=== PATIENT | female | born 1995 | race Caucasian/White ===

== ENCOUNTER 2020-11-27 19:36 | Emergency (ER) | payer OTHER, SELFPAY ==
[2020-11-27] VITALS (16 sets, daily range): BP systolic 113–132; BP diastolic 59–87; PULSE 82–132; RESP 18; TEMP 36.3; O2SAT 98–100
[2020-11-27 20:10] LABS: Basophils Percent Auto 0.5 % (0.2-1.2); Eosinophils Percent Auto 0.3 % (0-4.4); Hematocrit 46.3 % (37.0-47.0); Hemoglobin 15.2 g/dL (12.0-15.0); Immature Granulocyte Absolute 0.01 K/mm3 (0.00-0.031); Immature Granulocyte Percent A 0.3 % (0-0.5); Lymphocytes Absolute Auto 1.47 K/mm3 (0.9-3.2); Lymphocytes Percent Auto 38.6 % (18.3-44.2); Mean Corpuscular HGB Conc 32.8 g/dl (32-36); Mean Corpuscular Hemoglobin 30.7 pg (26-34); Mean Corpuscular Volume 93.5 fl (80-100); Mean Platelet Volume 10.2 fl (7.4-10.4); Monocytes Absolute Auto 0.5 K/mm3 (0.1-0.6); Monocytes Percent Auto 12.3 % (2.6-8.5); Neutrophils Absolute Auto 1.8 K/mm3 (1.3-6.7); Platelet Count Result 165 k/mm3 (150-375); Red Blood Count 4.95 M/mm3 (4.2-5.4); Red Cell Distribution Width 12.1 % (11.5-14.5); White Blood Count 3.8 K/mm3 (4.5-10.0)
[2020-11-27] MEDS: SODIUM CHLORIDE 0.9% IV 1,000 ML 999 ML IV CONT ×2 (20:11→20:12)
[2020-11-27] MEDS: ONDANSETRON INJ 4 MG/2 ML VIAL IV PUSH (20:11)
[2020-11-27 20:12] LABS: Add Urine Microscopic? YES; Appearance Urine Clear (Clear); Bacteria Urine 2+ /hpf; Bilirubin Urine Negative (Negative); Blood Urine Negative (Negative); Color Urine Yellow (Yellow); Glucose Urine UA Negative (Negative); Ketones Urine 2+ mg/dL (Negative); Leukocyte Esterase Ur Negative LEU/UL (Negative); Mucus Urine Moderate /lpf; Nitrate Urine Negative (Negative); Protein Urine 2+ mg/dL (Negative); Squamous Epithelial Cell Urine Many /hpf (Few); Urobilinogen Urine Negative mg/dL (<2.0); WBC Urine 0-3 /hpf
[2020-11-27 20:23] LABS: Alanine Aminotransferase 17 U/L (4-35); Albumin Level 4.4 g/dL (3.5-5.1); Alkaline Phosphatase 60 U/L (38-126); Anion Gap 11 mmol/L (8-16); Aspartate Amino Transferase 28 U/L (14-36); Bilirubin,Total 0.4 mg/dL (0.2-1.3); Blood Urea Nitrogen 18 mg/dL (7-17); Calcium 8.9 mg/dL (8.4-10.2); Carbon Dioxide 23 mmol/L (22-30); Chloride 102 mmol/L (98-107); Estimated CRCL calculation 71 ml/min; Estimated Glomerular Filt Rate > 60; Glucose 97 mg/dL (65-105); Lipase 87 U/L (23-300); Potassium 3.6 mmol/L (3.4-5.0); Sodium 136 mmol/L (137-145)
[2020-11-27] MEDS: FAMOTIDINE 20 MG/2 ML VIAL IV PUSH (21:08)
--- NOTE | 2020-11-27 22:05 | ED.GENADULT ---
HPI - General Adult General Chief complaint: Nausea/Vomiting/Diarrhea Stated complaint: COVID +, N/V Time Seen by Provider: 11/27/20 20:01 History of Present Illness HPI narrative: Patient 25-year-old female who presents the emergency department with chief complaint of nausea and vomiting. The patient reports she is diagnosed with COVID-19 and has had several days of nausea and vomiting. Patient states she is attempted to use Phenergan suppositories and Zofran ODT's but has been unable to keep anything down. The patient states that she is not really having pain just nausea. Patient reports he had a low-grade fever denies cough or shortness of breath. Related Data Home Medications Medication Instructions Recorded Confirmed norgestimate-ethinyl estradiol tablet 11/27/20 11/27/20 [Estarylla] promethazine [Promethegan] [place] 11/27/20 Allergies Allergy/AdvReac Type Severity Reaction Status Date / Time No Known Allergies Allergy Verified 11/27/20 19:44 Review of Systems Review of Systems: Narrative: A 10 system review of systems was completed on the patient and is negative except for what is stated in the HPI. Nursing and ancillary documentation was reviewed. [facility] Family History Family History Father Hypertension Grandparent Hypertension Carcinoma of colon Family history of lung cancer Family history of type 2 diabetes mellitus Other Diabetes mellitus Family history of cardiovascular disease Social History Social History Smoking status: Never smoker Alcohol intake: current Gender identity (if verbalized by the patient): Female Comments Past medical history significant for COVID-19 Exam Narrative: Exam Narrative: GENERAL: Well-appearing, well-nourished, and in no acute distress. HEAD: Normocephalic, atraumatic. EYES: PERRLA and EOMI. ENT: Nares clear, no rhinorrhea or epistaxis. Mucous membranes moist. NECK: Supple. CHEST: Clear to auscultation. No respiratory distress. HEART: Regular rate and rhythm. No murmur heard. Normal peripheral pulses. ABDOMEN: Soft, nontender, nondistended, normal active bowel sounds. EXTREMITIES: Normal range of motion. No edema. SKIN: Warm, dry, no rash. NEURO: No focal deficits. Alert and oriented x3. PSYCH: Normal mood and affect. Course Course Emergency Course: Patient was hydrated in the emergency department and received IV antiemetics. Patient is feeling much better now and is able to tolerate p.o. intake. Vital Signs Vital signs: Vital Signs Temperature 36.3 C L 11/27/20 19:46 Pulse Rate 132 H 11/27/20 19:46 Respiratory Rate 18 11/27/20 19:46 Blood Pressure 132/87 11/27/20 19:46 Pulse Oximetry 98 11/27/20 19:46 Temperature 36.3 C L 11/27/20 19:46 Pulse Rate 110 H 11/27/20 21:47 Respiratory Rate 18 11/27/20 19:46 Blood Pressure 115/60 11/27/20 22:01 Pulse Oximetry 99 11/27/20 22:15 Medical Decision Making Vital Signs Vital Signs: Vital Signs Temperature 36.3 C L 11/27/20 19:46 Pulse Rate 132 H 11/27/20 19:46 Respiratory Rate 18 11/27/20 19:46 Blood Pressure 132/87 11/27/20 19:46 Pulse Oximetry 98 11/27/20 19:46 Temperature 36.3 C L 11/27/20 19:46 Pulse Rate 110 H 11/27/20 21:47 Respiratory Rate 18 11/27/20 19:46 Blood Pressure 115/60 11/27/20 22:01 Pulse Oximetry 99 11/27/20 22:15 Lab Data Result diagrams: 11/27/20 20:05 11/27/20 20:05 Labs: Lab Results 11/27/20 11/27/20 11/27/20 Range/Units 20:01 20:05 20:05 WBC 3.8 L (4.5-10.0) K/mm3 RBC 4.95 (4.2-5.4) M/mm3 Hgb 15.2 H (12.0-15.0) g/dL Hct 46.3 (37.0-47.0) % MCV 93.5 (80-100) fl MCH 30.7 (26-34) pg MCHC 32.8 (32-36) g/dl RDW 12.1 (11.5-14.5) % Plt Count 165 (150-375) k/mm3 MPV 10.2 (7.4-10.4) fl [facility]
[2020-11-27] MEDS: PROCHLORPERAZINE EDISYLATE 10 MG/2 ML VIAL IV PUSH (22:31)
[2020-11-27] MEDS: diphenhydrAMINE HCl INJ 50 MG/ML VIAL 25 MG IV PUSH (23:04)
== END 2020-11-28 00:10 | disposition home or self-care (01) ==
PROVIDERS: Emergency Medicine; Emergency Provider Emergency Medicine; PCP Family Medicine
DX: U07.1 COVID-19 (principal); E86.0 Dehydration; R11.2 Nausea with vomiting, unspecified
CPT/HCPCS: 36415; 80053; 81001; 81025; 83690; 85025; 96361; 96374; 96375; 99284; J0780; J1200; J2405; J7030

== ENCOUNTER 2020-12-01 11:00 | Emergency (ER) | payer OTHER, SELFPAY ==
--- NOTE | ~2020-12-01 | XR_ITS ---
XR chest 1V portable DATE: 12/01/2020 12:16 INDICATION: Cough TECHNIQUE: Portable upright AP views on 12/01/2020 at 1205 hours COMPARISON: None FINDINGS: Normal heart size. No hilar or mediastinal enlargement. No pulmonary infiltrate or consolid ation, pleural effusion or pulmonary vascular congestion or pneumothorax. Included skeletal structures are unremarkable. IMPRESSION: No active cardiopulmonary disease Reviewed, dictated and finalized at location B. [facility] OF PROGRAM
[2020-12-01 11:07] VITALS: BP 134/81; PULSE 103; RESP 20; TEMP 36.4; O2SAT 98
[2020-12-01 11:18] VITALS: BP 119/63; PULSE 85
[2020-12-01 11:19] VITALS: BP 119/73; PULSE 105
[2020-12-01 11:22] VITALS: BP 115/73; PULSE 137
[2020-12-01 11:38] LABS: Basophils Percent Auto 0.5 % (0.2-1.2); Eosinophils Percent Auto 0.3 % (0-4.4); Hematocrit 43.8 % (37.0-47.0); Hemoglobin 14.3 g/dL (12.0-15.0); Immature Granulocyte Absolute 0.01 K/mm3 (0.00-0.031); Immature Granulocyte Percent A 0.3 % (0-0.5); Lymphocytes Absolute Auto 2.13 K/mm3 (0.9-3.2); Lymphocytes Percent Auto 56.8 % (18.3-44.2); Mean Corpuscular HGB Conc 32.6 g/dl (32-36); Mean Corpuscular Hemoglobin 30.1 pg (26-34); Mean Corpuscular Volume 92.2 fl (80-100); Mean Platelet Volume 11.1 fl (7.4-10.4); Monocytes Absolute Auto 0.4 K/mm3 (0.1-0.6); Monocytes Percent Auto 10.9 % (2.6-8.5); Neutrophils Absolute Auto 1.2 K/mm3 (1.3-6.7); Neutrophils Percent Auto 31.2 % (45.5-73.1); Platelet Count Result 149 k/mm3 (150-375); Red Blood Count 4.75 M/mm3 (4.2-5.4); Red Cell Distribution Width 11.9 % (11.5-14.5); White Blood Count 3.8 K/mm3 (4.5-10.0)
[2020-12-01 11:46] LABS: Add Urine Microscopic? YES; Appearance Urine Cloudy (Clear); Bacteria Urine 1+ /hpf; Bilirubin Urine Negative (Negative); Blood Urine Negative (Negative); Color Urine Yellow (Yellow); Glucose Urine UA Negative (Negative); Ketones Urine 2+ mg/dL (Negative); Leukocyte Esterase Ur Negative LEU/UL (Negative); Mucus Urine Moderate /lpf; Nitrate Urine Negative (Negative); Protein Urine 2+ mg/dL (Negative); RBC Urine 0-2 /hpf (0-2); Squamous Epithelial Cell Urine Many /hpf (Few); Urobilinogen Urine Negative mg/dL (<2.0)
[2020-12-01] MEDS: FAMOTIDINE 20 MG/2 ML VIAL IV PUSH (11:46)
[2020-12-01] MEDS: SODIUM CHLORIDE 0.9% IV 1,000 ML 999 ML IV CONT ×2 (11:46→12:41)
[2020-12-01] MEDS: ONDANSETRON INJ 4 MG/2 ML VIAL IV PUSH (11:46)
[2020-12-01 11:51] LABS: Alanine Aminotransferase 17 U/L (4-35); Albumin Level 4.5 g/dL (3.5-5.1); Alkaline Phosphatase 63 U/L (38-126); Anion Gap 11 mmol/L (8-16); Aspartate Amino Transferase 31 U/L (14-36); Bilirubin,Total 0.5 mg/dL (0.2-1.3); Blood Urea Nitrogen 13 mg/dL (7-17); Calcium 8.9 mg/dL (8.4-10.2); Carbon Dioxide 25 mmol/L (22-30); Chloride 101 mmol/L (98-107); Estimated CRCL calculation 71 ml/min; Estimated Glomerular Filt Rate > 60; Glucose 83 mg/dL (65-105); Lipase 169 U/L (23-300); Potassium 3.2 mmol/L (3.4-5.0); Sodium 137 mmol/L (137-145)
--- NOTE | 2020-12-01 12:01 | ED.GENADULT ---
HPI - General Adult General Chief complaint: Nausea/Vomiting/Diarrhea Stated complaint: COVID +, nausea Time Seen by Provider: 12/01/20 11:05 Source: patient Mode of arrival: ambulatory Limitations: no limitations History of Present Illness HPI narrative: Patient is a 25-year-old female who presents with nausea that has been present now for the last week diagnosed with COVID-19 prior Sunday patient lives at home by herself denies URI symptoms but notes persistent nausea denies any other complaints and on arrival is resting comfortably in the room in no distress patient notes she is currently on an antiacid and nausea medicine called in by her primary care doctor which has helped some Related Data Home Medications Medication Instructions Recorded Confirmed norgestimate-ethinyl estradiol tablet 11/27/20 11/27/20 [Estarylla] promethazine [Promethegan] [place] 11/27/20 Allergies Allergy/AdvReac Type Severity Reaction Status Date / Time No Known Allergies Allergy Verified 11/27/20 19:44 Review of Systems Review of Systems: All systems reviewed & are unremarkable except as noted in HPI and below PMFSH Family History Family History Father Hypertension Grandparent Hypertension Carcinoma of colon Family history of lung cancer Family history of type 2 diabetes mellitus Other Diabetes mellitus Family history of cardiovascular disease Social History Social History Smoking status: Never smoker Alcohol intake: current Gender identity (if verbalized by the patient): Female Exam Narrative: Exam Narrative: GENERAL: Well-appearing, well-nourished, and in no acute distress. HEAD: Normocephalic, atraumatic. EYES: PERRLA and EOMI. ENT: Nares clear, no rhinorrhea or epistaxis. Mucous membranes moist. CHEST: Clear to auscultation. No respiratory distress. No wheezes rales or rhonchi HEART: Regular rate and rhythm. No murmur heard. Normal peripheral pulses. ABDOMEN: Soft, nontender, nondistended, normal active bowel sounds. SKIN: Warm, dry, no rash. NEURO: No focal deficits. Alert and oriented x3. PSYCH: Normal mood and affect. Course Course Emergency Course: Patient evaluated for nausea secondary to likely Covid no high risk changes in the evaluation no pneumonia no hypoxemia patient was hydrated secondary to dehydration will be discharged home with medical management of her symptoms and advised to follow with primary care for further evaluation and given reasons to return ABCs stable vital signs intact Vital Signs Vital signs: Vital Signs Temperature 97.5 F L 12/01/20 11:07 Pulse Rate 103 H 12/01/20 11:07 Respiratory Rate 20 12/01/20 11:07 Blood Pressure 134/81 12/01/20 11:07 Pulse Oximetry 98 12/01/20 11:07 Temperature 97.5 F L 12/01/20 11:07 Pulse Rate 84 12/01/20 12:35 Respiratory Rate 22 H 12/01/20 12:35 Blood Pressure 112/71 12/01/20 12:35 Pulse Oximetry 100 12/01/20 12:35 Medical Decision Making MDM Narrative Medical decision making narrative: Patient in the room at this time aware of case findings treatment plan diagnosis agreeing to follow-up as directed or to return if symptoms worsen or concerns Vital Signs Vital Signs: Vital Signs Temperature 97.5 F L 12/01/20 11:07 Pulse Rate 103 H 12/01/20 11:07 Respiratory Rate 20 12/01/20 11:07 Blood Pressure 134/81 12/01/20 11:07 Pulse Oximetry 98 12/01/20 11:07 Temperature 97.5 F L 12/01/20 11:07 Pulse Rate 84 12/01/20 12:35 Respiratory Rate 22 H 12/01/20 12:35 Blood Pressure 112/71 12/01/20 12:35 Pulse Oximetry 100 12/01/20 12:35 Lab Data Result diagrams: 12/01/20 11:19 12/01/20 11:19 Labs: Lab Results 12/01/20 12/01/20 12/01/20 Range/Units 11:19 11:19 11:20 WBC 3.8 L (4.5-10.0) K/mm3 RBC 4.75 (4.2-5.4) M/mm3
[2020-12-01 12:35] VITALS: BP 112/71; PULSE 84; RESP 22; O2SAT 100
[2020-12-01 14:03] VITALS: BP 113/65; PULSE 88; RESP 20; O2SAT 100
== END 2020-12-01 14:06 | disposition home or self-care (01) ==
PROVIDERS: Emergency Provider Emergency Medicine; PCP Family Medicine
DX: U07.1 COVID-19 (principal); R11.0 Nausea
CPT/HCPCS: 36415; 71045; 80053; 81001; 81025; 83690; 85025; 87086; 96361; 96374; 96375; 99284; J2405; J7030

== ENCOUNTER → 2021-08-26 10:02 | Outpatient (CLI) | payer OTHER, SELFPAY ==
--- NOTE | ~2021-08-26 | XR_ITS ---
XR chest 2V DATE: 08/26/2021 10:22 INDICATION: Cough. Bronchitis. TECHNIQUE: 2 views COMPARISON: 12/21/2020 portable AP chest FINDINGS: Normal heart size. No hilar or mediastinal enlargement. No pulmonary infiltrate or consol idation, pulmonary vascular congestion or pleural effusion or pneumothorax. IMPRESSION: Negative Reviewed, dictated and finalized at location B. IMPRESSION: Negative
== END ==
PROVIDERS: PCP Family Medicine; Visit Provider Nurse Practitioner Family
DX: R05.9 Cough, unspecified (principal); J40 Bronchitis, not specified as acute or chronic; Z20.822 Contact with and (suspected) exposure to COVID-19
CPT/HCPCS: 71046

== ENCOUNTER → 2021-10-26 02:41 | Outpatient (CLI) | payer OTHER, SELFPAY ==
[2021-10-26 17:58] LABS: SARS-CoV-2 RNA PCR Negative
== END ==
PROVIDERS: PCP Family Medicine; Visit Provider Nurse Practitioner Family
DX: J02.9 Acute pharyngitis, unspecified (principal); Z20.822 Contact with and (suspected) exposure to COVID-19
CPT/HCPCS: C9803; U0003; U0005

== ENCOUNTER 2024-09-01 09:50 | Outpatient (CLI) | payer BC, SELFPAY ==
--- NOTE | ~2024-09-01 | XR_ITS ---
EXAMINATION: XR hysterosalpingogram DATE: 09/01/2024 11:03 INDICATION: Fertility testing. TECHNIQUE: Fluoroscopy was performed by the radiologist during contrast infusion into the endometrial cavity of the uterus by the primary physician. Fluoroscopy exposure time was 0.6 minutes. The total number of images was 6. FINDINGS: The intrauterine cavity is normal in morphology. The fallopian tubes are normal in caliber. There is normal free intraperitoneal spillage of contrast on either side. IMPRESSION: 1. Normal hysterosalpingogram. Reviewed, dictated and finalized at location A.
== END 2024-09-01 09:51 | disposition home or self-care (01) ==
PROVIDERS: PCP Family Medicine; Visit Provider Obstetrics & Gynecology Gynecology
DX: Z31.49 Encounter for other procreative investigation and testing (principal)
CPT/HCPCS: 58340; 74740; Q9966